=== PATIENT | male | born 1970 | race Two or more races ===

== ENCOUNTER 2017-03-29 17:40 | Emergency (ER) | payer MEDICAID ==
[2013-09-09 19:37] VITALS: BMI 31.6
== END 2017-03-29 21:00 | disposition left against medical advice (07) ==
LOC: D.ER 17:40
DX: R22.42 Localized swelling, mass and lump, left lower limb (principal)

== ENCOUNTER 2017-06-04 17:22 | Inpatient (IN) | payer MEDICAID ==
[2017-06-04 17:56] LABS: BASOPHILS 0.1 % (0-2); EOSINOPHILS 1.6 % (0-7); HEMATOCRIT 50.9 % (42.0-54.0); HEMOGLOBIN 17.5 g/dL (13.5-17.5); IMMATURE GRANULOCYTES 0.2 % (0-5); LYMPHOCYTES 11.5 % (15-50); MCH 31.4 pg (26.0-34.0); MCHC 34.4 g/dL (31.0-37.0); MCV 91.4 fL (80.0-100.0); MEAN PLATELET VOLUME 9.7 fL (7.4-10.4); MONOCYTES 6.6 % (2-11); PLATELET COUNT 240 10x3/uL (130-400); RBC 5.57 10x6/uL (4.20-6.10); RDW 12.6 % (11.5-14.5); WBC 10.7 10x3/uL (4.8-10.8)
[2017-06-04 18:06] LABS: APPEARANCE CLEAR (CLEAR); BILIRUBIN NEGATIVE (NEGATIVE); COLOR DK YELLOW (YELLOW); GLUCOSE NEGATIVE (NEGATIVE); KETONE NEGATIVE (NEGATIVE); NITRITE NEGATIVE (NEGATIVE); PROTEIN TRACE mg/dL (NEGATIVE); SPECIFIC GRAVITY 1.025 (1.005-1.020); UROBILINOGEN NORMAL (NORMAL)
[2017-06-04 18:10] LABS: EPITHELIAL CELLS 0-5 /hpf (0-5); RED CELLS - URINE 0-5 /hpf (0-5); WHITE CELLS - URINE 0-5 /hpf (0-5)
[2017-06-04 18:11] LABS: BACTERIA FEW /hpf (NONE SEEN); GRANULAR CAST RARE /lpf (NONE SEEN); MUCUS <1+ /lpf (NONE SEEN)
[2017-06-04 19:34] LABS: ALBUMIN 4.1 g/dL (3.4-5.0); ALKALINE PHOSPHATASE 91 U/L (46-116); ALT (SGPT) 62 U/L (10-68); AMYLASE - SERUM 49 U/L (25-115); CALC OSMOLALITY 272 mosm/kg (275-300); CALCIUM 9.4 mg/dL (8.5-10.1); CHLORIDE - SERUM 101 mmol/L (98-107); CREATININE - SERUM 1.1 mg/dL (0.6-1.3); GLUCOSE 126 mg/dL (74-106); LIPASE 107 U/L (73-393); PRO BNP 12 pg/mL (0-125); PROTEIN - SERUM 8.5 g/dL (6.4-8.2); SODIUM 135 mmol/L (136-145); UREA NITROGEN 15 mg/dL (7-18); eGFR NON AFRICAN AMERICAN 76 mL/min (90-120)
[2017-06-04 19:35] LABS: CARBON DIOXIDE 23.9 mmol/L (21.0-32.0); TROPONIN-I < 0.017 ng/mL (0.000-0.060)
[2017-06-05 00:42] VITALS: BP 116/81; BMI 38.3
[2017-06-05 04:34] VITALS: BP 123/70
--- NOTE | 2017-06-05 07:00 | NUR ---
PT REC'D FROM [facility]. RESTING IN BED WITH EYES CLOSED. EASILY AROUSED. RATING CURRENT PAIN IN ABD 03/17. WILL REASSESS. REGULAR HEART RATE AND RHYTHM. LUNG SOUNDS CLEAR AND EQUAL BILAT. TELEMETRY IN PLACE. BOWEL SOUNDS TO LLQ ACTIVE, LUQ HYPOACTIVE, RUQ HYPOACTIVE, AND ABSENT TO RLQ. PIV TO L AC FREE OF REDNESS AND SWELLING. BED LOW, CALL LIGHT IN REACH, DENIES NEEDS. CPOC.
[2017-06-05 08:43] VITALS: BP 135/80
--- NOTE | 2017-06-05 10:10 | NUR ---
18FR NGT INSERTED AT THIS TIME. MEASURED FROM TIP OF NOSE TO EAR THEN TO XYPHOID PROCESS. IMMEDIATE RETURN OF APPROXIMATELY 50CC'S OF YELLOW/BROWN FLUID. PRN ZOFRAN ADMINISTERED. KUB ORDERED BY DR. BOOTHE. CONNECTED TO SUCTION TUBING, BUT SUCTION NOT TURNED ON UNTIL KUB RESULTS RETURN. BED LOW, CALL LIGHT IN REACH, ICE CHIPS PROVIDED. CPOC.
[2017-06-05 10:55] LABS: BASOPHILS 0.2 % (0-2); EOSINOPHILS 0.8 % (0-7); HEMATOCRIT 46.5 % (42.0-54.0); HEMOGLOBIN 15.9 g/dL (13.5-17.5); IMMATURE GRANULOCYTES 0.2 % (0-5); MCH 31.6 pg (26.0-34.0); MCHC 34.2 g/dL (31.0-37.0); MCV 92.4 fL (80.0-100.0); MEAN PLATELET VOLUME 9.8 fL (7.4-10.4); MONOCYTES 9.5 % (2-11); NEUTROPHILS 70.3 % (40-80); PLATELET COUNT 244 10x3/uL (130-400); RBC 5.03 10x6/uL (4.20-6.10); RDW 12.7 % (11.5-14.5)
[2017-06-05 10:56] LABS: WBC 6.1 10x3/uL (4.8-10.8)
[2017-06-05 11:03] LABS: CALC OSMOLALITY 279 mosm/kg (275-300); CALCIUM 8.7 mg/dL (8.5-10.1); CARBON DIOXIDE 24.8 mmol/L (21.0-32.0); CHLORIDE - SERUM 105 mmol/L (98-107); CREATININE - SERUM 0.9 mg/dL (0.6-1.3); GLUCOSE 143 mg/dL (74-106); MAGNESIUM - SERUM 2.1 mg/dL (1.8-2.4); POTASSIUM - SERUM 4.1 mmol/L (3.5-5.1); SODIUM 138 mmol/L (136-145); UREA NITROGEN 17 mg/dL (7-18); eGFR NON AFRICAN AMERICAN > 90 mL/min (90-120)
[2017-06-05 11:04] LABS: APTT 34.1 SECONDS (22.8-39.4); INR 0.98 (0.85-1.17); PROTIME 12.8 SECONDS (11.6-15.0)
[2017-06-05 11:51] VITALS: BP 128/90
[2017-06-05 16:49] VITALS: BP 140/85
[2017-06-05 20:00] VITALS: BP 113/73
[2017-06-06] VITALS (7 sets, daily range): BP systolic 108–142; BP diastolic 69–88; BMI 38.2
--- NOTE | 2017-06-06 00:06 | NUR ---
PT C/O ABDOMINAL CRAMPING PAIN 04/17. GAVE MORPHINE 2 MG IV PUSH. NGT SUCTIONING DARK BROWN LIQUID. PT HAD 2 LIQUID AND FORMED STOOLS EARLIER THIS NIGHT. WILL CONTINUE TO MONITOR.
[2017-06-06 05:36] LABS: BASOPHILS 0.3 % (0-2); HEMOGLOBIN 14.5 g/dL (13.5-17.5); IMMATURE GRANULOCYTES 0.1 % (0-5); MCH 30.7 pg (26.0-34.0); MCV 93.2 fL (80.0-100.0); MEAN PLATELET VOLUME 9.8 fL (7.4-10.4); MONOCYTES 12.5 % (2-11); NEUTROPHILS 69.1 % (40-80); PLATELET COUNT 231 10x3/uL (130-400); RBC 4.72 10x6/uL (4.20-6.10); RDW 12.7 % (11.5-14.5); WBC 7.2 10x3/uL (4.8-10.8)
[2017-06-06 06:24] LABS: ALBUMIN 3.1 g/dL (3.4-5.0); ALKALINE PHOSPHATASE 62 U/L (46-116); CALCIUM 8.3 mg/dL (8.5-10.1); CARBON DIOXIDE 24.1 mmol/L (21.0-32.0); CHLORIDE - SERUM 106 mmol/L (98-107); CREATININE - SERUM 0.9 mg/dL (0.6-1.3); GLUCOSE 109 mg/dL (74-106); MAGNESIUM - SERUM 1.8 mg/dL (1.8-2.4); POTASSIUM - SERUM 3.5 mmol/L (3.5-5.1); PROTEIN - SERUM 6.4 g/dL (6.4-8.2); SODIUM 140 mmol/L (136-145); eGFR NON AFRICAN AMERICAN > 90 mL/min (90-120)
[2017-06-06 06:25] LABS: ALT (SGPT) 39 U/L (10-68); CALC OSMOLALITY 278 mosm/kg (275-300); UREA NITROGEN 11 mg/dL (7-18)
--- NOTE | 2017-06-06 11:21 | NUR ---
Patient Name: MICHAELA SALDANA Admission Status: ER Accout number: [id number] Admission Date: 06-04-2017 : 1970 Admission Diagnosis: Attending: KAYLIN TAYLOR Current LOS: 2 Anticipated DC Date: 06-10-2017 Planned Disposition: Home Primary Insurance: [place] PRIVATE OPTIONS [facility] Discharge Planning Comments: CM MET WITH PATIENT REGARDING D/C NEEDS AND PLANS. PATIENT STATED HE LIVES ALONE AND HIS AUNT (VALERIANO) WILL DRIVE HIM HOME AT DISCHARGE. PATIENT STATED HE HAS ONE STEP TO ENTER HOME AND NO STAIRS INSIDE. PATIENT STATED HE IS INDEPENDENT WITH HIS CARE AND HAS NO DME AT HOME. PATIENT CANNOT REMEMBER HIS DOCTORS NAME NOR HIS BRAKE ASSEMBLER'S NAME. PATIENT STATED HE SEES AN BRAKE ASSEMBLER NAMED ZEUS. PATIENTS PHARMACY IS [facility] ON [facility]. PATIENT IS REFUSING HOME HEALTH AT THIS TIME. PCP UNKNOWN (BUT HAS ONE) [phone] VALERIANO (AUNT) [phone] Appraisal Analyst: Esther Mcelroy Is the patient Alert and Oriented? Yes 0 * How many steps to enter\exit or inside your home? 1 0 * PCP CANT REMEMBER STATED HE SEES AN BRAKE ASSEMBLER NAMED ZEUS (CANT REMEMBER HER LAST NAME) 0 * Pharmacy [facility] ON [facility] 0 * Preadmission Environment Home Alone 0 * ADLs Independent 0 * Equipment None 0 * List name and contact numbers for known caregivers / representatives who currently or will assist patient after discharge: VALERIANO (AUNT) [phone] * Community resources currently utilized None 0 * Additional services required to return to the preadmission environment? Yes 0 * Can the patient safely return to the preadmission environment? Yes 0 * Has this patient been hospitalized within the prior 30 days at any hospital? No 0 Grand Total: 0
--- NOTE | 2017-06-06 18:14 | NUR ---
PT LYING IN BED, HAD SUPP ORDERED, GAVE PT AT 1540 PT STATED DOESNT NEED ANY MORE, PT ASKED FOR MORE POPSICLES, HAD PAIN MED AT 1634, NO OTHER NEEDS AT THIS TIME. CONTINUE WITH CARE PLAN
--- NOTE | 2017-06-06 20:15 | NUR ---
PATIENT RESTING IN BED WITH C/O OF NAUSEA AND 7/10 PAIN. ADMINISTERED MEDS PER ORDERS AND COMPLETED ASSESSMENT. BED IN LOWEST POSITION AND CALL LIGHT WITHIN REACH. ENCOURAGED THE PATIENT TO CALL IF HE HAS NEEDS.
[2017-06-07 04:00] VITALS: BP 114/73
[2017-06-07 06:28] LABS: BASOPHILS 0.2 % (0-2); EOSINOPHILS 1.2 % (0-7); HEMATOCRIT 42.9 % (42.0-54.0); HEMOGLOBIN 14.5 g/dL (13.5-17.5); IMMATURE GRANULOCYTES 0.1 % (0-5); LYMPHOCYTES 18.5 % (15-50); MCH 31.2 pg (26.0-34.0); MCHC 33.8 g/dL (31.0-37.0); MCV 92.3 fL (80.0-100.0); MEAN PLATELET VOLUME 9.7 fL (7.4-10.4); MONOCYTES 11.8 % (2-11); NEUTROPHILS 68.2 % (40-80); PLATELET COUNT 228 10x3/uL (130-400); RBC 4.65 10x6/uL (4.20-6.10); RDW 12.3 % (11.5-14.5); WBC 8.2 10x3/uL (4.8-10.8)
[2017-06-07 06:54] LABS: ALBUMIN 3.1 g/dL (3.4-5.0); ALKALINE PHOSPHATASE 61 U/L (46-116); ALT (SGPT) 31 U/L (10-68); CALC OSMOLALITY 271 mosm/kg (275-300); CALCIUM 8.6 mg/dL (8.5-10.1); CARBON DIOXIDE 27.4 mmol/L (21.0-32.0); CHLORIDE - SERUM 101 mmol/L (98-107); CREATININE - SERUM 0.9 mg/dL (0.6-1.3); GLUCOSE 94 mg/dL (74-106); POTASSIUM - SERUM 3.8 mmol/L (3.5-5.1); PROTEIN - SERUM 6.7 g/dL (6.4-8.2); SODIUM 137 mmol/L (136-145); UREA NITROGEN 6 mg/dL (7-18); eGFR NON AFRICAN AMERICAN > 90 mL/min (90-120)
--- NOTE | 2017-06-07 07:37 | NUR ---
PT REQUEST MEDICATION FOR SPLITTING HEADACHE. PT GIVEN MORPHINE AND ZOFRAN IV. STATES PAIN IS A 10
--- NOTE | 2017-06-07 07:52 | NUR ---
PT REQUEST TO HAVE NG OUT. HE IS C/O NAUSEA. HE STATES THAT HE IS NAUSEATED BECAUSE OF THE TUBE AND IT BACKING UP IN HIS THROAT. HE STATES THAT HE HAS HAD 2 BM'S YESTERDAY AND THE DAY BEFORE AND IS PASSING GAS. HE ALSO WOULD LIKE TO HAVE POPSICLES. I TOLD HIM HE WAS NPO. HE STATES THAT HE HAS BEEN GETTING THEM. I TOLD HIM I WOULD CHECK WITH HIS
[2017-06-07 08:15] VITALS: BP 138/82
--- NOTE | 2017-06-07 09:00 | NUR ---
DR BOOTHE HERE TO SEE PT. NEW ORDERS REVIEWED. HE VERBALIZED TO CLAMP TUBE X 4 HRA AND IF HE TOLERATES WE MAY DC.
--- NOTE | 2017-06-07 09:34 | NUR ---
NG TUBE CLAMPED. WILL CLAMP FOR 4 HRS AND IF HE TOLERATES BEING CLAMPED I WILL DC.
--- NOTE | 2017-06-07 09:40 | NUR ---
PT HERE TO EVALUATED. PT STATES THAT HE CAN AMBULATE INDEPENDENTLY. STATEAS TO ENCOURAGE HIM TO DO THIS.
--- NOTE | 2017-06-07 09:41 | NUR ---
X-RAY HERE TO GET PT VIA WHEELCHAIR FOR X-RAYS.
--- NOTE | 2017-06-07 12:00 | NUR ---
PT IS BACK FROM RADIOLOGY. NG STILL CLAMPED. PT STATES THAT HE IS FEELING WORSE NOW. IV INITIATED AGAIN.
[2017-06-07 12:52] VITALS: BP 124/70
--- NOTE | 2017-06-07 13:23 | NUR ---
AM MEDS GIVEN. UNABLE TO GIVE THEM THIS AM DUE TO PT GOING TO X-RAY. PT REQUESTED ZOFRAN FOR NAUSEA AND ALSO PAIN MED. BOTH WERE GIVEN.
--- NOTE | 2017-06-07 13:25 | NUR ---
X-RAY IS BACK TO DO FOLLOW UP X-RAY.
--- NOTE | 2017-06-07 14:00 | NUR ---
X-RAY CAME TO GET PT TO TAKE HIM TO RADIOLOGY DEPT.
--- NOTE | 2017-06-07 15:15 | NUR ---
PT IS BACK FROM RADIOLOGY. PT BACK TO BED. BED IS LOW. SIDE RAILS UP X 2 AND CALL LIGHT IN REACH.
[2017-06-07 16:51] VITALS: BP 135/77
--- NOTE | 2017-06-07 18:16 | NUR ---
PT IS RESTING IN BED. HE STATES THAT HE TOLERATED CLEAR LIQUID DIET. HE HAS HAD NO NAUSEA OR VOMITING. BE IS LOW. SIDE RAILS UP X 2 AND CALL LIGHT IN REACH. IV PATENT LEFT AC
--- NOTE | 2017-06-07 19:44 | NUR ---
PT SEEN AND ASSESSED. NO COMPLAINTS AT PRESENT. STATES NO NAUSEA OR VOMITING. NG WAS REMOVED EARILER THIS AM-SIPS OF CLEAR LIQUID AT PRESNT. BOWEL SOUNDS PRESENT. CALL LIGHT IN REACH
[2017-06-07 21:30] VITALS: BP 133/84
[2017-06-08 00:26] VITALS: BP 150/74
--- NOTE | 2017-06-08 02:19 | NUR ---
ASSISTED PT TO RESTROOM, PT REQUESTED TO BE UNHOOKED FROM IV TO USE RESTROOM. NO SIGNS OF DISTRESS, VOICED NO OHER NEEDS AT THIS TIME
[2017-06-08 04:44] VITALS: BP 105/73
[2017-06-08 05:30] LABS: BASOPHILS 0.4 % (0-2); EOSINOPHILS 3.7 % (0-7); HEMATOCRIT 42.5 % (42.0-54.0); HEMOGLOBIN 14.7 g/dL (13.5-17.5); IMMATURE GRANULOCYTES 0.3 % (0-5); LYMPHOCYTES 21.4 % (15-50); MCH 31.2 pg (26.0-34.0); MCHC 34.6 g/dL (31.0-37.0); MEAN PLATELET VOLUME 9.5 fL (7.4-10.4); MONOCYTES 13.7 % (2-11); NEUTROPHILS 60.5 % (40-80); PLATELET COUNT 241 10x3/uL (130-400); RBC 4.71 10x6/uL (4.20-6.10); RDW 12.2 % (11.5-14.5); WBC 7.5 10x3/uL (4.8-10.8)
[2017-06-08 05:31] LABS: MCV 90.2 fL (80.0-100.0)
[2017-06-08 05:41] LABS: ALBUMIN 3.1 g/dL (3.4-5.0); ALKALINE PHOSPHATASE 62 U/L (46-116); ALT (SGPT) 30 U/L (10-68); CALC OSMOLALITY 275 mosm/kg (275-300); CARBON DIOXIDE 28.4 mmol/L (21.0-32.0); CHLORIDE - SERUM 102 mmol/L (98-107); CREATININE - SERUM 0.9 mg/dL (0.6-1.3); GLUCOSE 126 mg/dL (74-106); POTASSIUM - SERUM 3.5 mmol/L (3.5-5.1); PROTEIN - SERUM 7.3 g/dL (6.4-8.2); SODIUM 138 mmol/L (136-145); UREA NITROGEN 7 mg/dL (7-18); eGFR NON AFRICAN AMERICAN > 90 mL/min (90-120)
--- NOTE | 2017-06-08 07:30 | NUR ---
PT IS RECEIVED LYING IN BED SLEEPING. HE OFFERS NO COMPLAINTS AT THIS TIME. HE STATES THAT HE DID NOT SLEEP WELL LAST PM. BED IS LOW, SIDE RAILS UP X 2 AND CALL LIGHT IN REACH. IV PATENT LEFT AC. GEN- AWAKE AND ALERT. LUNGS- CLEAR. HEART- RRR. ABD- BS+. SOFT, NONTENDER. EXT- NO EDEMA NOTED.
[2017-06-08 08:06] VITALS: BP 114/57
--- NOTE | 2017-06-08 08:30 | NUR ---
PT C/O HAVING A HEADACHE. WOULD LIKE SOMETHING FOR PAIN. GAVE PT IV MORPHINE. DBED IS LOW, SIDE RAILS UP X 2 AND CALL LIGHT IN REACH.
--- NOTE | 2017-06-08 10:00 | NUR ---
PT STATES THAT HE TURNED HIS IV OFF BECAUSE IT WAS LEAKING AT THE IV SITE A LITTLE. IV SALINE LOCKED AT THIS TIME. THERE IS A SMALL LEAK AROUNG IV SITE. NO REDNESS, TENDERNESS OR SWELLING AT L AC IV SITE.
--- NOTE | 2017-06-08 10:25 | NUR ---
PT IS RESTING IN BED. OFFERS NO COMPLAINTS.
--- NOTE | 2017-06-08 11:22 | NUR ---
GAVE PT MOM. PT STATES THAT HE JUST HAD A BOWEL MOVEMENT.
--- NOTE | 2017-06-08 13:04 | NUR ---
CM REASSESSMENT NOTE: PATIENT IS DISCHARGING HOME TODAY / FRIEND DRIVING HIM/ NO NEEDS/ REF HH
== END 2017-06-08 13:45 | disposition home or self-care (01) | DRG 390 ==
LOC: D.ER 17:22 → D.MS 22:09
PROVIDERS: Emergency Medicine; Family Medicine; Surgery; ADMIT Family Medicine
PROC: 0D9670Z Drainage of Stomach with Drainage Device, Via Natural or Artificial Opening (ICD-10-PCS; principal; 2017-06-05)
DX: K56.609 Unspecified intestinal obstruction, unspecified as to partial versus complete obstruction (principal)

== ENCOUNTER 2018-11-20 16:42 | Emergency (ER) | payer BC ==
[~2018-11-20] VITALS: Ht 165.1 cm; Wt 86.4 kg
[2018-11-20 16:52] VITALS: Ht 165.1 cm; Wt 86.4 kg
[2018-11-20 17:35] LABS: BASOPHILS 0.3 % (0-2); EOSINOPHILS 2.2 % (0-7); HEMATOCRIT 44.9 % (42.0-54.0); HEMOGLOBIN 15.8 g/dL (13.5-17.5); IMMATURE GRANULOCYTES 0.1 % (0-5); LYMPHOCYTES 21.4 % (15-50); MCH 31.4 pg (26.0-34.0); MCHC 35.2 g/dL (31.0-37.0); MCV 89.3 fL (80.0-100.0); MEAN PLATELET VOLUME 9.3 fL (7.4-10.4); MONOCYTES 8.9 % (2-11); NEUTROPHILS 67.1 % (40-80); PLATELET COUNT 251 10x3/uL (130-400); RBC 5.03 10x6/uL (4.20-6.10); RDW 12.7 % (11.5-14.5); WBC 7.7 10x3/uL (4.8-10.8)
[2018-11-20 18:11] LABS: ALBUMIN 3.5 g/dL (3.4-5.0); ALKALINE PHOSPHATASE 108 U/L (46-116); ALT (SGPT) 237 U/L (10-68); BILIRUBIN - TOTAL 0.76 mg/dL (0.2-1.3); CALC OSMOLALITY 274 mosm/kg (275-300); CALCIUM 8.9 mg/dL (8.5-10.1); CARBON DIOXIDE 24.4 mmol/L (21.0-32.0); CHLORIDE - SERUM 104 mmol/L (98-107); CREATININE - SERUM 0.9 mg/dL (0.6-1.3); GLUCOSE 107 mg/dL (74-106); POTASSIUM - SERUM 4.2 mmol/L (3.5-5.1); PROTEIN - SERUM 7.7 g/dL (6.4-8.2); SODIUM 138 mmol/L (136-145); UREA NITROGEN 10 mg/dL (7-18); eGFR NON AFRICAN AMERICAN > 90 mL/min (90-120)
[2018-11-20 18:15] LABS: AMYLASE - SERUM 39 U/L (25-115); LIPASE 90 U/L (73-393); TROPONIN-I < 0.017 ng/mL (0.000-0.060)
[2018-11-20] MEDS ORDERED: ZOFRAN8 MG PO (21:39)
[2018-11-20 21:58] VITALS: BP 144/78
== END 2018-11-20 21:58 | disposition home or self-care (01) ==
LOC: D.ER 16:42
PROVIDERS: Family Medicine
DX: K52.9 Noninfective gastroenteritis and colitis, unspecified (principal)